=== PATIENT | female | born 1990 | race African-American/Black ===

== ENCOUNTER 2016-07-30 15:02 | Emergency (ER) | payer OTHER ==
[2016-07-30] MEDS ORDERED: ONDANSETRON 4 MG ORAL DISINTEGRATING TAB (S0181) As Ordered ONE (17:33)
[2016-07-30] MEDS ORDERED: DICYCLOMINE INJ 20MG/2ML (J0500) As Ordered ONE (17:34)
--- NOTE | 2016-07-30 18:51 | EDDOCDS ---
Physician Documentation [facility] Name: Eleni Tejeda Age: 26 yrs Sex: Female : 1990 Arrival Date: 07/30/2016 Time: 15:02 Bed PR Private MD: Other - Complete Info On Cds Disposition: 07/30/16 18:44 Discharged to Home/Self Care. Impression: Nausea and vomiting, Diarrhea, unspecified. - Condition is Stable. - Discharge Instructions: Viral Gastroenteritis, [id number]. - Prescriptions for ZOFRAN ODT 4 mg - dissolve 1 tablet by ORAL route 4 times per day As needed do not chew, do not swallow whole; 10 tablet. - Local Pharmacy Hours, Medication Reconciliation form. - Follow up: Private Physician; When: Call to arrange an appointment; Reason: Further diagnostic work-up, Recheck today's complaints, Continuance of care. - Problem is new. - Symptoms have improved. Historical: - Allergies: no known allergies; - Home Meds: 1. none - PMHx: none; - PSHx: none; - Social history: Smoking status: Patient/guardian denies using No barriers to communication noted, The patient speaks fluent Nepalese. - Family history: Not pertinent. - : The pt / caregiver states he / she is not on anticoagulants. Home medication list is obtained from the patient. - Exposure Risk Screening:: None identified. 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 6 in. (167.64 cm) (R); Pain 7/10; 17:19 BP 120 / 70; Pulse 90; Resp 18; Temp 97.5(O); Pulse Ox 99% on R/A; Pain 10/10; ct3 15:05 Body Mass Index 22.92 (64.41 kg, 167.64 cm) gr2 MDM: 17:29 Ondansetron ODT Oral Disintegrating Tablet 4 mg PO once ordered. ar2 17:29 Bentyl 20 mg IM once ordered. ar2 17:29 Fluid Challenge ordered. ar2 17:38 Financial registration complete. jacky 18:09 [facility] Payment Agreement was scanned into [employer] and attached to record. gjlukas Administered Medications: 17:42 Drug: Ondansetron ODT 4 mg [ondansetron 4 mg disintegrating tablet (1 tabs)] Route: PO; kcs 17:42 Drug: Bentyl 20 mg [Bentyl 10 mg/mL intramuscular solution (2 mL)] Route: IM; Site: kcs right gluteus; Signatures: Liyah Sánchez, RN Heber Sotelo PA-C PA-Demetrius ar2 Ulisses Snell PA PA btw King, Margaret, RN RN mk4 Adrienne Englandb Della Zelaya RN The chart was reviewed and I authenticate all verbal orders and agree with the evaluation and treatment provided.Attachments: 18:09 [facility] Payment Agreement gjlukas MTDD
--- NOTE | 2016-07-30 18:51 | EDDOCDS ---
Nurse's Notes [facility] Name: Eleni Tejeda Age: 26 yrs Sex: Female : 1990 Arrival Date: 07/30/2016 Time: 15:02 Bed PR Private MD: Taylor - Complete Info On Cds Diagnosis: Nausea and vomiting;Diarrhea, unspecified Presentation: 07/30 15:07 Presenting complaint: Patient states: Pt presents with c/o nausea vomiting and diarrhea dls abdominal pain onset this morning. Adult Sepsis Screening: The patient does not have new or worsening altered mentation. Patient's respiratory rate is less than 22. Systolic blood pressure is greater than 100. Patient has a qSOFA score of 0- Negative Sepsis Screen. Suicide/Homicide risk assessment- the patient denies having any suicidal and/or homicidal ideations and does not present with any other emotional, behavioral or mental health complaints. Status: The patient is a dependent. Transition of care: patient was not received from another setting of care. 15:07 Acuity: MCKINLEY Level 3 dls 15:07 Method Of Arrival: Walkin/Carried/Asstd dls Triage Assessment: 15:09 General: Appears distressed, Behavior is cooperative. Pain: Pain currently is 10 out of dls 10 on a pain scale. HIV screening NA for this visit Offered previously. 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 none - PMHx: none; - PSHx: none; - Social history: Smoking status: Patient/guardian denies using No barriers to communication noted, The patient speaks fluent Yemeni. - Family history: Not pertinent. - : The pt / caregiver states he / she is not on anticoagulants. Home medication list is obtained from the patient. - Exposure Risk Screening:: None identified. Screenin:18 Screening information is obtained from the patient. Fall risk: No risks identified. mk4 Assistance ADL's: requires no assistance with activities of daily living. Abuse/DV Screen: The patient / caregiver reports he/she is: not in a situation that causes fear, pain or injury. Nutritional screening: No deficits noted. Advance Directives: Currently, there is no health care proxy. There is no active DNR order. There is no living will. There is no Power of Rn Enterostomal. Advance directive information has not previously been placed in an [facility] medical record. home support is adequate. Assessment: 17:00 General: Appears uncomfortable, Behavior is dramatic in appearance , doubled over. mk4 18:18 General: Appears in no apparent distress, pt drinking soda her brought her from [address] [employer] and tolerating it, states she is still in pain however. GI: Abdomen is non- distended Abd is soft and non tender. 18:43 General: Appears in no apparent distress, pt eating fast food from [employer] in room mk4 without emesis stella well, states pain is still present . 18:49 General: Appears in no apparent distress, texting on phone in room . 4 Vital Signs: 15:05 BP 120 / 71; Pulse 85; Resp 18 S; Temp 98.0(O); Pulse Ox 96% on R/A; Weight 64.41 kg gr2 (R); Height 5 ft. 6 in. (167.64 cm) (R); Pain 7/10; 17:19 BP 120 / 70; Pulse 90; Resp 18; Temp 97.5(O); Pulse Ox 99% on R/A; Pain 10/10; ct3 15:05 Body Mass Index 22.92 (64.41 kg, 167.64 cm) gr2 Vitals: 15:05 Log In Time: July 30, 2016 at 15:05. gr2 ED Course: 15:04 Patient visited by Jasmin Horton. gr2 15:04 Other - Complete Info On Cds is Private Physician. gr2 15:04 Patient moved to Waiting gr2 15:07 Patient visited by Jasmin Horton. gr2 15:07 Patient moved to Pre RCE gr2 15:09 Triage Initiated dls 16:51 Patient moved to Triage 2 kcs 17:09 Patient visited by Vanessa Camacho RN. mk4 17:20 Patient visited by Devika Campbell PCA. ct3 17:20 Heber Pickard PA-C is PHCP. ar2 17:20 Jia Shah MD is Attending Physician. ar2 17:20 Patient visited by Heber Pickard PA-C. ar2 17:41 Patient moved to PR2 / ct3 17:57 PHCP role handed off by Heber Pickard PA-C btw 17:57 Ulisses Snell PA is PHCP. btw 18:00 Patient visited by Vanessa Camacho RN. mk4 18:09 [facility] Payment Agreement was scanned into [employer] and attached to record. gjb 18:18 The patient / caregiver is instructed regarding the plan of care and ED course. mk4 18:21 No IV's were initiated during this patient's visit. No procedures done that require mk4 assistance. 18:31 Patient visited by Vanessa Camacho RN. mk4 Administered Medications: 17:42 Drug: Ondansetron ODT 4 mg [ondansetron 4 mg disintegrating tablet (1 tabs)] Route: PO; kcs 17:42 Drug: Bentyl 20 mg [Bentyl 10 mg/mL intramuscular solution (2 mL)] Route: IM; Site: [facility] right gluteus; Order Results: There are currently no results for this order. Outcome: 18:44 Discharge ordered by Provider. btw 18:45 Condition: good Condition: stable. mk4 18:49 Discharge Assessment: Patient awake, alert and oriented x 3. No cognitive and/or mk4 functional deficits noted. Patient verbalized understanding of disposition instructions. Patient awake and alert. Discharge Assessment: patient administered narcotics - no. The following High Risk Discharge criteria are identified: None. No special radiology studies were completed. Property sent home with patient. 18:50 Patient left the ED. 4 Signatures: Della Zelaya RN RN kcs Scott, Debra, RN RN dls Robertshaw, Aaron, PA-C PA-C ar2 Ulisses Snell PA PA btw Campbell, Devika, AUTO BUMPER MECHANIC AUTO BUMPER MECHANIC ct3 Jasmin Horton gr2 Vanessa Camacho RN RN mk4 Beck, Gabriela gjb Corrections: (The following items were deleted from the chart) 18:49 18:43 GI: Bowel sounds present X 4 quads. mk4 mk4 MTDD
--- NOTE | 2016-08-01 19:51 | EDDOCDS ---
Physician Documentation [facility] Name: Eleni Tejeda Age: 26 yrs Sex: Female : 1990 Arrival Date: 07/30/2016 Time: 15:02 Bed PR Private MD: Other - Complete Info On Cds Disposition: 07/30/16 18:44 Discharged to Home/Self Care. Impression: Nausea and vomiting, Diarrhea, unspecified. - Condition is Stable. - Discharge Instructions: Viral Gastroenteritis, [id number]. - Prescriptions for ZOFRAN ODT 4 mg - dissolve 1 tablet by ORAL route 4 times per day As needed do not chew, do not swallow whole; 10 tablet. - Local Pharmacy Hours, Medication Reconciliation form. - Follow up: Private Physician; When: Call to arrange an appointment; Reason: Further diagnostic work-up, Recheck today's complaints, Continuance of care. - Problem is new. - Symptoms have improved. Historical: - Allergies: no known allergies; - Home Meds: 1. none - PMHx: none; - PSHx: none; - Social history: Smoking status: Patient/guardian denies using No barriers to communication noted, The patient speaks fluent Tunisian. - Family history: Not pertinent. - : The pt / caregiver states he / she is not on anticoagulants. Home medication list is obtained from the patient. - Exposure Risk Screening:: None identified. 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 6 in. (167.64 cm) (R); Pain 7/10; 17:19 BP 120 / 70; Pulse 90; Resp 18; Temp 97.5(O); Pulse Ox 99% on R/A; Pain 10/10; ct3 15:05 Body Mass Index 22.92 (64.41 kg, 167.64 cm) gr2 MDM: 17:29 Ondansetron ODT Oral Disintegrating Tablet 4 mg PO once ordered. ar2 17:29 Bentyl 20 mg IM once ordered. ar2 17:29 Fluid Challenge ordered. ar2 17:38 Financial registration complete. [facility] 18: ON LICENSE OF [facility] Payment Agreement was scanned into [email or web address] and attached to record. [facility] 07/31 14:05 T-Sheet-- Draft Copy was scanned into [email or web address] and attached to record. gb Administered Medications: 07/30 17:42 Drug: Ondansetron ODT 4 mg [ondansetron 4 mg disintegrating tablet (1 tabs)] Route: PO; kcs 17:42 Drug: Bentyl 20 mg [Bentyl 10 mg/mL intramuscular solution (2 mL)] Route: IM; Site: [facility]cs right gluteus; Signatures: Liyah Sánchez, RN RN dls Romana Power, Reg Reg Heber Sadners PA-C PARadu arUlisses Miller PA PA btw King, Margaret RN RN mk4 Adrienne Englandb Della Zelaya RN The chart was reviewed and I authenticate all verbal orders and agree with the evaluation and treatment provided.Attachments: 18:09 ON LICENSE OF [facility] Payment Agreement [facility] 07/31 14:05 T-Sheet-- Draft Copy gb Chart Complete MTDD
--- NOTE | 2016-08-01 19:51 | EDDOCDS ---
Physician Documentation [facility] Name: Eleni Tejeda Age: 26 yrs Sex: Female : 1990 Arrival Date: 07/30/2016 Time: 15:02 Bed PR Private MD: Other - Complete Info On Cds Disposition: 07/30/16 18:44 Discharged to Home/Self Care. Impression: Nausea and vomiting, Diarrhea, unspecified. - Condition is Stable. - Discharge Instructions: Viral Gastroenteritis, [id number]. - Prescriptions for ZOFRAN ODT 4 mg - dissolve 1 tablet by ORAL route 4 times per day As needed do not chew, do not swallow whole; 10 tablet. - Local Pharmacy Hours, Medication Reconciliation form. - Follow up: Private Physician; When: Call to arrange an appointment; Reason: Further diagnostic work-up, Recheck today's complaints, Continuance of care. - Problem is new. - Symptoms have improved. Historical: - Allergies: no known allergies; - Home Meds: 1. none - PMHx: none; - PSHx: none; - Social history: Smoking status: Patient/guardian denies using No barriers to communication noted, The patient speaks fluent Sao Tomean. - Family history: Not pertinent. - : The pt / caregiver states he / she is not on anticoagulants. Home medication list is obtained from the patient. - Exposure Risk Screening:: None identified. 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 6 in. (167.64 cm) (R); Pain 7/10; 17:19 BP 120 / 70; Pulse 90; Resp 18; Temp 97.5(O); Pulse Ox 99% on R/A; Pain 10/10; ct3 15:05 Body Mass Index 22.92 (64.41 kg, 167.64 cm) gr2 MDM: 17:29 Ondansetron ODT Oral Disintegrating Tablet 4 mg PO once ordered. ar2 17:29 Bentyl 20 mg IM once ordered. ar2 17:29 Fluid Challenge ordered. ar2 17:38 Financial registration complete. [facility] 18: [facility] Payment Agreement was scanned into [employer] and attached to record. [facility] 07/31 14:05 T-Sheet-- Draft Copy was scanned into [employer] and attached to record. gb Administered Medications: 07/30 17:42 Drug: Ondansetron ODT 4 mg [ondansetron 4 mg disintegrating tablet (1 tabs)] Route: PO; kcs 17:42 Drug: Bentyl 20 mg [Bentyl 10 mg/mL intramuscular solution (2 mL)] Route: IM; Site: [facility] right gluteus; Signatures: Liyah Sánchez, RN RN dls Romana Power, Reg Reg Heber Sanders PA-C PARadu arUlisses Miller PA PA btw King, Margaret RN RN mk4 Adrienne Englandb Della Zelaya RN The chart was reviewed and I authenticate all verbal orders and agree with the evaluation and treatment provided.Attachments: 18:09 [facility] Payment Agreement [facility] 07/31 14:05 T-Sheet-- Draft Copy gb Chart Complete MTDD
--- NOTE | 2016-08-01 19:51 | EDDOCDS ---
Nurse's Notes [facility] Name: Eleni Tejeda Age: 26 yrs Sex: Female : 1990 Arrival Date: 07/30/2016 Time: 15:02 Bed PR Private MD: Taylor - Complete Info On Cds Diagnosis: Nausea and vomiting;Diarrhea, unspecified Presentation: 07/30 15:07 Presenting complaint: Patient states: Pt presents with c/o nausea vomiting and diarrhea dls abdominal pain onset this morning. Adult Sepsis Screening: The patient does not have new or worsening altered mentation. Patient's respiratory rate is less than 22. Systolic blood pressure is greater than 100. Patient has a qSOFA score of 0- Negative Sepsis Screen. Suicide/Homicide risk assessment- the patient denies having any suicidal and/or homicidal ideations and does not present with any other emotional, behavioral or mental health complaints. Status: The patient is a dependent. Transition of care: patient was not received from another setting of care. 15:07 Acuity: MCKINLEY Level 3 dls 15:07 Method Of Arrival: Walkin/Carried/Asstd dls Triage Assessment: 15:09 General: Appears distressed, Behavior is cooperative. Pain: Pain currently is 10 out of dls 10 on a pain scale. HIV screening NA for this visit Offered previously. 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 none - PMHx: none; - PSHx: none; - Social history: Smoking status: Patient/guardian denies using No barriers to communication noted, The patient speaks fluent Andorran. - Family history: Not pertinent. - : The pt / caregiver states he / she is not on anticoagulants. Home medication list is obtained from the patient. - Exposure Risk Screening:: None identified. Screenin:18 Screening information is obtained from the patient. Fall risk: No risks identified. mk4 Assistance ADL's: requires no assistance with activities of daily living. Abuse/DV Screen: The patient / caregiver reports he/she is: not in a situation that causes fear, pain or injury. Nutritional screening: No deficits noted. Advance Directives: Currently, there is no health care proxy. There is no active DNR order. There is no living will. There is no Power of Dairy Processing Equipment Operator. Advance directive information has not previously been placed in an [facility] medical record. home support is adequate. Assessment: 17:00 General: Appears uncomfortable, Behavior is dramatic in appearance , doubled over. mk4 18:18 General: Appears in no apparent distress, pt drinking soda her brought her from [address] [employer] and tolerating it, states she is still in pain however. GI: Abdomen is non- distended Abd is soft and non tender. 18:43 General: Appears in no apparent distress, pt eating fast food from [employer] in room mk4 without emesis stella well, states pain is still present . 18:49 General: Appears in no apparent distress, texting on phone in room . 4 Vital Signs: 15:05 BP 120 / 71; Pulse 85; Resp 18 S; Temp 98.0(O); Pulse Ox 96% on R/A; Weight 64.41 kg gr2 (R); Height 5 ft. 6 in. (167.64 cm) (R); Pain 7/10; 17:19 BP 120 / 70; Pulse 90; Resp 18; Temp 97.5(O); Pulse Ox 99% on R/A; Pain 10/10; ct3 15:05 Body Mass Index 22.92 (64.41 kg, 167.64 cm) gr2 Vitals: 15:05 Log In Time: July 30, 2016 at 15:05. gr2 ED Course: 15:04 Patient visited by Jasmin Horton. gr2 15:04 Other - Complete Info On Cds is Private Physician. gr2 15:04 Patient moved to Waiting gr2 15:07 Patient visited by Jasmin Horton. gr2 15:07 Patient moved to Pre RCE gr2 15:09 Triage Initiated dls 16:51 Patient moved to Triage 2 kcs 17:09 Patient visited by Vanessa Camacho RN. mk4 17:20 Patient visited by Devika Campbell PCA. ct3 17:20 Heber Pickard PA-C is PHCP. ar2 17:20 Jia Shah MD is Attending Physician. ar2 17:20 Patient visited by Heber Pickard PA-C. ar2 17:41 Patient moved to PR2 / ct3 17:57 PHCP role handed off by Heber Pickard PA-C btw 17:57 Ulisses Snell PA is PHCP. btw 18:00 Patient visited by Vanessa Camacho RN. mk4 18:09 [facility] Payment Agreement was scanned into [employer] and attached to record. gjlukas 18:18 The patient / caregiver is instructed regarding the plan of care and ED course. mk4 18:21 No IV's were initiated during this patient's visit. No procedures done that require mk4 assistance. 18:31 Patient visited by Vanessa Camacho RN. mk4 07/31 14:05 T-Sheet-- Draft Copy was scanned into [employer] and attached to record. gb Administered Medications: 07/30 17:42 Drug: Ondansetron ODT 4 mg [ondansetron 4 mg disintegrating tablet (1 tabs)] Route: PO; kcs 17:42 Drug: Bentyl 20 mg [Bentyl 10 mg/mL intramuscular solution (2 mL)] Route: IM; Site: [facility] right gluteus; Order Results: There are currently no results for this order. Outcome: 18:44 Discharge ordered by Provider. btw 18:45 Condition: good Condition: stable. mk4 18:49 Discharge Assessment: Patient awake, alert and oriented x 3. No cognitive and/or mk4 functional deficits noted. Patient verbalized understanding of disposition instructions. Patient awake and alert. Discharge Assessment: patient administered narcotics - no. The following High Risk Discharge criteria are identified: None. No special radiology studies were completed. Property sent home with patient. 18:50 Patient left the ED. 4 Signatures: Della Zelaya RN RN kcs Scott, Debra, RN RN dls Romana Power, Reg Reg gb Heber Pickard PA-C PA-C ar2 Ulisses Snell PA PA btw CampbellDevika, GROUND OPERATIONS CREW MEMBER GROUND OPERATIONS CREW MEMBER ct3 Jasmin Horton gr2 Vanessa Camacho RN RN mk4 Beck, Gabriela gjb Corrections: (The following items were deleted from the chart) 18:49 18:43 GI: Bowel sounds present X 4 quads. mk4 mk4 Chart Complete MTDD
== END 2016-07-30 18:50 | disposition home or self-care (01) ==
LOC: M ED 15:02
DX: R11.2 Nausea with vomiting, unspecified (principal); R19.7 Diarrhea, unspecified; R10.9 Unspecified abdominal pain
CPT/HCPCS: 96372; 99283; J0500

== ENCOUNTER 2017-08-17 20:50 | Emergency (ER) | payer OTHER ==
[2017-08-17] MEDS: ONDANSETRON 4MG/2ML VIAL (J2405) IV (22:00)
[2017-08-17] MEDS: NS 1,000 ML IV (22:00)
[2017-08-17 22:43] LABS: HEMATOCRIT 35.3 % (36.0-47.0); HEMOGLOBIN 11.8 g/dl (12.0-16.0); MEAN CORPUSCULAR HEMOGLOBIN 29.7 pg (27.0-33.0); MEAN CORPUSCULAR HGB CONC 33.4 g/dl (32.0-36.5); MEAN CORPUSCULAR VOLUME 88.9 fl (80.0-96.0); PLATELET COUNT, AUTOMATED 375 10^3/uL (150-450); RED BLOOD COUNT 3.97 10^6/uL (4.00-5.40); RED CELL DISTRIBUTION WIDTH 12.5 % (11.5-14.5); WHITE BLOOD COUNT 10.7 10^3/uL (4.0-10.0)
[2017-08-17 23:23] LABS: ANION GAP 10 MEQ/L (8-16); BLOOD UREA NITROGEN 5 MG/DL (7-18); CALCIUM LEVEL 9.2 MG/DL (8.5-10.1); CARBON DIOXIDE LEVEL 25 MEQ/L (21-32); CHLORIDE LEVEL 103 MEQ/L (98-107); CREATININE FOR GFR 0.46 MG/DL (0.55-1.30); GLOMERULAR FILTRATION RATE > 60.0 (>60); GLUCOSE, FASTING 72 MG/DL (70-100); HCG, SERUM QUANTITATIVE 58422 MIU/ML; POTASSIUM SERUM 4.2 MEQ/L (3.5-5.1); SODIUM LEVEL 138 MEQ/L (136-145)
== END 2017-08-17 23:36 | disposition home or self-care (01) ==
LOC: M ED 20:50
DX: O99.89 Other specified diseases and conditions complicating pregnancy, childbirth and the puerperium (principal); R42 Dizziness and giddiness; Z79.899 Other long term (current) drug therapy
CPT/HCPCS: J2405

== ENCOUNTER 2017-12-02 11:47 | Emergency (ER) | payer OTHER ==
[2017-12-02 14:05] LABS: CALCIUM OXALATE CRYSTALS RFX SMALL; KETONE, URINE AUTO RFX NEGATIVE (NEGATIVE); LEUKOCYTE ESTERASE UR AUTO RFX 3+ (NEGATIVE); MUCUS, URINE RFX SMALL (NEGATIVE); NITRITE, URINE AUTO RFX NEGATIVE (NEGATIVE); RBC, URINE AUTO RFX 4 /HPF (0-3); SPECIFIC GRAVITY UR AUTO RFX 1.025 (1.002-1.035); SQUAM EPITHELIAL CELL UR AURFX 12 /HPF (0-6); WBC, URINE AUTO RFX 7 /HPF (0-3)
[2017-12-02] MEDS: NITROFURANTOIN (MACROBID) 100 MG CAP PO (14:47)
== END 2017-12-02 14:52 | disposition home or self-care (01) ==
LOC: M ED 11:47
DX: O23.42 Unspecified infection of urinary tract in pregnancy, second trimester (principal); Z3A.23 23 weeks gestation of pregnancy
CPT/HCPCS: 81001